=== PATIENT | female | born 1990 | race Caucasian/White ===

== ENCOUNTER 2016-10-19 12:04 | Emergency (ER) | payer MEDICAID ==
[2016-10-19 12:14] VITALS: BP 116/55
--- NOTE | 2016-10-19 13:11 | UC ---
Back Pain HPI - HPI Summary HPI Summary: 26 Y/O female approximately 11 weeks presents with C/O low back pain that began after picking up her child at home. Was seen the next day by her OB/ [employer] without Dx related to . Presents today for request of work excuse due to continued pain in low back that is aggregated by movement . Denies abdominal cramping, vaginal bleeding or other complaint. Denies incontinence of urine or bowels. Denies numbness to extremities or difficulty maintaining balance. - History of Current Complaint Chief Complaint: UCBackPain Stated Complaint: BACK PAIN Time Seen by Provider: 10/19/16 12:45 Hx Obtained From: Patient Hx Last Menstrual Period: 09/08/15 ?: Yes Onset/Duration: Sudden Onset Timing: Intermittent Severity Initially: Moderate Severity Currently: Moderate Pain Intensity: 7 Pain Scale Used: 0-10 Numeric Back Pain: Is Discrete @ - Lower back Character: Aching Aggravating: Movement Alleviating: Rest, Heat Associated Signs And Symptoms: Positive: Negative. Negative: Weakness, Numbness , Tingling, Bladder Incontinence, Bowel Incontinence - Risk Factors AAA Risk Factors: Negative TAD Risk Factors: Negative Cauda Equina Risk Factors: Negative Epidural Abscess Risk Factors: Negative - Allergies/Home Medications Allergies/Adverse Reactions: Allergies Allergy/AdvReac Type Severity Reaction Status Date / Time No Known Allergies Allergy Verified 09/13/15 15:23 Home Medications: Home Medications Vitamin [Calna] 1 tab PO 10/19/16 [History] PMH/Surg Hx/FS Hx/Imm Hx Previously Healthy: Yes Other History Of: Negative For: Anticoagulant Therapy - Surgical History Surgical History: Yes Surgery Procedure, Year, and Place: umbilical hernia repair in 5th grade - Family History Known Family History: Positive: None, Other - Grandmother-Cholecystectomy - Social History Alcohol Use: None Substance Use Type: None Smoking Status (MU): Former Smoker Type: Cigarettes Amount Used/How Often: 1-2/day Length of Time of Smoking/Using Tobacco: 2013 Have You Smoked in the Last Year: Yes When Did the Patient Quit Smoking/Using Tobacco: 3 MOS AGO Household Exposure Type: Cigarettes - Immunization History Most Recent Influenza Vaccination: never Most Recent Tetanus Shot: 02/09/15 Most Recent Pneumonia Vaccination: never Review of Systems Constitutional: Negative Skin: Negative Eyes: Negative ENT: Negative Respiratory: Negative Cardiovascular: Negative Gastrointestinal: Negative Genitourinary: Negative Motor: Negative Neurovascular: Negative Musculoskeletal: Negative Neurological: Negative Psychological: Negative All Other Systems Reviewed And Are Negative: Yes Physical Exam Triage Information Reviewed: Yes Appearance: Well-Appearing, No Pain Distress Vital Signs: Initial Vital Signs Temp 98.2 F 10/19/16 12:09 Pulse 83 10/19/16 12:09 Resp 18 10/19/16 12:09 BP 116/55 10/19/16 12:09 Pulse Ox 100 10/19/16 12:09 Vital Signs Reviewed: Yes Respiratory Exam: Normal Respiratory: Positive: Normal breath sounds Cardiovascular Exam: Normal Cardiovascular: Positive: RRR Abdominal Exam: Normal Abdomen Description: Positive: Nontender Musculoskeletal Exam: Normal Musculoskeletal: Positive: Strength Intact, ROM Intact Neurological Exam: Normal Neurological: Positive: Alert Psychological Exam: Normal Skin Exam: Normal Back Pain Course/Dx - Differential Dx/Diagnosis Differential Diagnosis/HQI/PQRI: Herniated Disc, Strain, Sprain Provider Diagnoses: Low back strain Discharge - Discharge Plan Condition: Stable Disposition: HOME Patient Education Materials: Low Back Strain (ED) Forms: *Work Release Additional Instructions: Rest, apply ice / heat as tolerated. May return to urgent care as needed for worsening symptoms.
== END 2016-10-19 13:19 | disposition home or self-care (01) ==
LOC: UCEAST 12:04
DX: S39.012A Strain of muscle, fascia and tendon of lower back, initial encounter (principal); Z87.891 Personal history of nicotine dependence; X50.0XXA Overexertion from strenuous movement or load, initial encounter
CPT/HCPCS: 99211; G0463

== ENCOUNTER 2017-05-05 07:32 | Inpatient (IN) | payer OTHER ==
--- NOTE | 2017-05-05 08:15 | HP ---
General Information - General Information Maternal Age: 27 Grav: 2 Para: 1 SAB: 0 IEA: 0 Estimated Due Date: 05/11/17 Determined By: Early Ultrasound Gestational Age in Weeks and Days: 39 Weeks and 1 Days Maternal Blood Type and Rh: A Positive - Results this Serology/RPR Result: Non-Reactive Rubella Result: Immune HBsAg Result: Negative HIV Result: Negative GBS Culture Result: Negative Past Medical History Delivery History: Hx Uncomplicated Vaginal Delivery Pertinent Past Medical History: See Records Pertinent Past Surgical History: See Records Past Surgical History Comment: umbilical hernia repair Pertinent Family History: See Records - Antepartal Records Antepartal Records: Reviewed, Uncomplicated Review of Systems Constitutional: Comfortable CV Complaint: No Respiratory: Shortness of Breath: No Gastrointestinal: No Nausea/Vomiting Genitourinary: No Leaking Fluid Musculoskeletal: Back Pain Neurological: No Headache Movement: Normal Exam Allergies/Adverse Reactions: Allergies No Known Allergies Allergy (Verified 09/13/15 15:23) Vital Signs 05/05/17 08:07 Temperature 98.4 F Pulse Rate 95 Respiratory 20 Rate Blood Pressure 121/67 (mmHg) O2 Sat by Pulse 100 Oximetry - Measurements Height: 5 ft 7 in Weight: 173 lb Weight in lbs: 173 Body Mass Index (BMI): 27.1 Pre- Weight: 160 lb Weight Gained This : 13 lbs and 0 ozs - Exam Abdomen: No Upper Quadrant Pain Breast: - - soft, no masses CVA: No CVA Tenderness Extremities: No Edema Heart: Normal Rhythm/Heart Sounds HEENT: No Significant Findings Lungs: Clear Bilaterally Rectal: Rectal Exam Deferred EFM Findings - External Monitor Findings Baseline Heart Rate: 145 External Monitor Findings: Accelerations Present, Variability Moderate External Monitor Findings Comment: category 1 Contractions: None Assessment/Plan - Plan Plan: Induction Plan Comment: Multip for elective induction at 39w 1 d. Will start pitocin. Desires epidural when uncomfortable
[2017-05-05] MEDS ORDERED: Oxytocin in LR* 20 UNITS/1,000 ML BAG IVPB ONE (08:25)
[2017-05-05 09:00] LABS: ABS Basophils 0.1 10^3/ul (0-0.2); ABS Eosinophils 0.1 10^3/ul (0-0.6); ABS Lymphocytes 1.4 10^3/ul (1.0-4.8); ABS Monocytes 0.4 10^3/ul (0-0.8); ABS Neutrophils 6.7 10^3/ul (1.5-7.7); ABS Nucleated RBC 0 10^3/ul; Eosinophil % 1.4 % (0-6); Hematocrit 35 % (35-47); Hemoglobin 11.8 g/dl (12.0-16.0); Lymphocyte % 16.3 % (25-47); Mean Corpuscular HGB Conc 34 g/dl (31-36); Mean Corpuscular Hemoglobin 28 pg (27-31); Mean Corpuscular Volume 85 fL (80-97); Mean Platelet Volume 9 um3 (7.4-10.4); Nucleated Red Blood Cells % 0; Platelet Count 187 10^3/ul (150-450); Red Blood Count 4.15 10^6/ul (4.0-5.4); Red Cell Distribution Width 14 % (10.5-15); White Blood Count 8.8 10^3/ul (3.5-10.8)
[2017-05-05] MEDS ORDERED: Oxytocin in LR* 20 UNITS/1,000 ML BAG IVPB SCH ×2 (09:00→15:20)
[2017-05-05] MEDS ORDERED: OBEPIDURAL* 250 ML EPIDURAL ONE (12:31)
[2017-05-05] MEDS ORDERED: Phenylephrine IV* 40 MCG/ML 10 ML SYRINGE IV PUSH PRN ×2 (13:04)
[2017-05-05] MEDS ORDERED: Sodium Citrate/Citric Acid* 15 ML UDC PO PRN (13:04)
[2017-05-05] MEDS ORDERED: EPHEDrine (Pressors)* 50 MG/ML VIAL IV PUSH PRN ×2 (13:04)
[2017-05-05] MEDS ORDERED: Famotidine TAB* 20 MG PO PRN (13:04)
[2017-05-05] MEDS ORDERED: OBEPIDURAL* 250 ML EPIDURAL SCH (14:00)
[2017-05-05] MEDS ORDERED: Glycerin ADULT SUPP PR PRN (15:18)
[2017-05-05] MEDS ORDERED: Witch Hazel PAD* JAR TOPICAL PRN (15:18)
[2017-05-05] MEDS ORDERED: Acetaminophen TAB* 325 MG PO PRN (15:18)
[2017-05-05] MEDS ORDERED: Dibucaine 1% 28.35 GM TUBE PR PRN (15:18)
[2017-05-05] MEDS: Ibuprofen TAB* 600 MG PO PRN ×2 (15:32→22:09)
[2017-05-05] MEDS: Docusate CAP* 100 MG PO SCH (22:09)
[2017-05-06] MEDS: Docusate CAP* 100 MG PO SCH ×3 (08:09→20:46)
[2017-05-06] MEDS: Ibuprofen TAB* 600 MG PO PRN ×3 (08:09→20:46)
[2017-05-06 08:23] LABS: Hematocrit 37 % (35-47); Hemoglobin 12.6 g/dl (12.0-16.0); Mean Corpuscular HGB Conc 34 g/dl (31-36); Mean Corpuscular Hemoglobin 29 pg (27-31); Mean Corpuscular Volume 84 fL (80-97); Mean Platelet Volume 9 um3 (7.4-10.4); Platelet Count 179 10^3/ul (150-450); Red Blood Count 4.38 10^6/ul (4.0-5.4); Red Cell Distribution Width 14 % (10.5-15); White Blood Count 10.3 10^3/ul (3.5-10.8)
[2017-05-06] MEDS ORDERED: Ferrous Gluconate TAB* 324 MG TAB PO SCH (09:00)
[2017-05-07] MEDS: Ibuprofen TAB* 600 MG PO PRN ×2 (04:09→10:42)
[2017-05-07 08:02] VITALS: BP 114/66
== END 2017-05-07 11:06 | disposition home or self-care (01) | DRG 560 ==
LOC: MCHOBOUT 07:32 → MCHOB 08:07
PROVIDERS: ADMIT Midwife; ATTEND Midwife
PROC: 10E0XZZ Delivery of Products of Conception, External Approach (ICD-10-PCS; principal; 2017-05-05)
PROC: 3E033VJ Introduction of Other Hormone into Peripheral Vein, Percutaneous Approach (ICD-10-PCS; 2017-05-05)
DX: O70.0 First degree perineal laceration during delivery (principal); Z37.0 Single live birth; Z3A.39 39 weeks gestation of pregnancy; Z87.891 Personal history of nicotine dependence
CPT/HCPCS: 36415; 85025; 85027; 86850; 86900; 86901; A9270-GY